=== PATIENT | male | born 1955 | race American Indian/Alaskan Native ===

== ENCOUNTER → 2017-12-27 | Outpatient (CLI) | payer MEDICARE, BC ==
[~2017-12-27] MED LIST: ASPIRIN E.C. 8181 MG PO; CALCIUM1 CAP PO; CENTRUM1 TAB PO; CO Q-1010 MG PO; COUMADIN 5MG5 MG/TAB PO; ELITE MAGNESIUM1 TAB PO; HAWTHORNE250 MG PO; LOPRESSOR 550 MG/TAB PO; LOVENOX120 MG/0.8 SC; OCEAN NASAL SPR45 ML NS; PRILOSEC 20MG20 MG PO; SILVADENE CREAM1 TU TP; SYNTHROID0.2 MG/TAB PO; THERAGRAN1 TAB PO
== END ==
LOC: COL.RAD 16:06
DX: R09.02 Hypoxemia (principal); R79.89 Other specified abnormal findings of blood chemistry
CPT/HCPCS: J7050; Q9967